=== PATIENT | male | born 1945 | race Caucasian/White ===

== ENCOUNTER 2017-02-03 05:49 | Inpatient (IN) | payer OTHER, SELFPAY ==
[2017-01-27 09:19] LABS: WBC (NOT ORDERED) (RFLEX) 0 (0-5)
[2017-01-27 09:38] LABS: HEMATOCRIT 40.6 % (40.0-51.0); HEMOGLOBIN 13.8 g/dL (13.6-17.8)
[2017-01-27 09:50] LABS: BUN (BLOOD UREA NITROGEN) 21 MG/DL (6-23); CHLORIDE, SERUM 106 MMOL/L (96-112); CO2 (CARBON DIOXIDE) 28 MMOL/L (24-34); CREATININE 1.17 MG/DL (0.70-1.30); GFR AFRICAN AMERICAN 73 ML/MIN (>=60); GFR NON AFRICAN AMERICAN 63 ML/MIN (>=60); GLUCOSE, SERUM 99 MG/DL (60-99); POTASSIUM, SERUM 4.2 MMOL/L (3.5-5.3); SODIUM, SERUM 141 MMOL/L (135-148)
[2017-01-27 09:53] LABS: ASCORBIC ACID (UR NOT ORDER) NEG (NEG); BILIRUBIN, URINE NEGATIVE (NEG); KETONE, URINE NEGATIVE (NEG); LEUKOCYTE ESTERASE(NOT OR NEG (NEG)
--- NOTE | ~2017-02-03 | OP ---
Record Of Operation [facility] [address] [place]. [address] NAME: ORACIO NARANJO : 47 STATUS : ADM IN PAT#: [id number] AGE: 71 ADM/REG DATE : 02/03/17 MR#: [id number] REPORT SERV DATE: 02/03/17 DICTATED BY: CRIS LEBRON DATE: 02/03/17 REPORT STATUS : Draft TRANSCRIBED BY: MODL DATE: 02/03/17 DATE OF PROCEDURE: 02/03/2017 SURGEON: Cris Lebron MD TITLE OF OPERATION: Robot-assisted laparoscopic simple prostatectomy. PREOPERATIVE DIAGNOSIS: Benign prostatic hyperplasia with obstruction. POSTOPERATIVE DIAGNOSIS: Benign prostatic hyperplasia with obstruction. INDICATIONS: Mr. Naranjo is a 71-year-old male, with BPH with obstruction. His prostate volume is greater than 100 g. He has a mechanical heart valve and needs anticoagulation. Weighing the risks and benefits, the various approaches to his prostate, I feel like a robotic simple prostatectomy offers him the best chance to be curative to his voiding symptoms, while getting him back on anticoagulation LOIS. ANESTHESIA: General. COMPLICATIONS: None. IMPLANT: A 24-Citizen [place] 3-way Velasquez catheter, #10 SANID drain. SPECIMEN: Prostatic adenoma. NARRATIVE: The patient was brought to the operating room, identified by his wristband. General anesthesia was induced and Ancef was given for preoperative antibiotics. He was placed in dorsal lithotomy position, prepped and draped in sterile fashion. His abdomen was insufflated to pressure of 15 mmHg using a Veress needle. A 12 mm port was placed in a supraumbilical position. The abdomen was inspected, there were no adhesions or tumors. Two 8 mm ports were placed in the left side of the body and one 8 mm port was placed in the right side of the body. A 12 mm port was placed in the right lower quadrant for pharmacy assistant port and a 5 mm port was placed in the right upper quadrant for pharmacy assistant port. The patient was placed in Trendelenburg and the SI robot was docked. The bladder was then dropped off the anterior abdominal wall using electrocautery exposing the pubic bone and prostate. The fibrofatty tissue overlying the prostate was removed with bipolar cautery and scissors and discarded. A horizontal cystotomy was made just proximal to the adenoma. This was widened and exposing the intravesical portion of the prostate. A 2-0 Monocryl suture was placed through the intravesical adenoma for a retracting suture. It was clipped, the needle was removed. I scored the bladder mucosa above the trigone on the adenoma down to the level of the adenoma. The dissection was carried down our to the junction of the transitional and peripheral zones. Next, the adenoma was dissected circumferentially off the capsule laterally and anteriorly. Eventually, the urethra was encountered and it was sharply divided under direct vision. The adenoma was then removed from the prostatic fossa and placed into an EndoCatch bag. Arterial bleeding was controlled with pinpoint cautery. The bladder mucosa was advanced into the prostatic fossa using a running 3-0 V-Loc suture. The Record Of Operation [address] [address] NAME: ORACIO NARANJO : 46 STATUS : ADM IN PAT#: [id number] AGE: 71 ADM/REG DATE : 02/03/17 MR#: [id number] REPORT SERV DATE: 02/03/17 DICTATED BY: CRIS LEBRON DATE: 02/03/17 REPORT STATUS : Draft TRANSCRIBED BY: HARESH DATE: 02/03/17 dorsal vein perforating vessels were oversewn with a running 3-0 V-Loc suture in a horseshoe fashion over the urethra. There was excellent hemostasis. A 24-Citizen [place] 3-way Velasquez catheter was placed into the bladder with robotic assistance. The cystotomy was closed in two layers, the first layer was a mucosal layer with a 3-0 V-Loc suture in a running fashion, the second layer was a seromuscular layer using a 2-0 V-Loc suture. The balloon was inflated with 40 mL of sterile water. The bladder was irrigated, the connection was water tight. The patient was then woken anesthesia and transferred to recovery room in stable condition. His catheter was on CBI on gentle traction. He will be admitted to the hospital. We will reinstate his anticoagulation while he is admitted. ALONDRA/HARESH Cris Lebron MD / [id number] CC: Cris Lebron MD
--- NOTE | ~2017-02-03 | HP ---
History And Physical [address] [place]. [address] NAME: ORACIO NARANJO : 47 STATUS : DIS IN PAT#: [id number] AGE: 71 ADM/REG DATE : 02/03/17 MR#: [id number] REPORT SERV DATE: 03/28/17 DICTATED BY: CRIS LEBRON DATE: 03/28/17 REPORT STATUS : Draft TRANSCRIBED BY: MODL DATE: 03/28/17 DATE OF ADMISSION: 02/03/2017 CHIEF COMPLAINT: BPH with obstruction due to enlarged prostate. HISTORY OF PRESENT ILLNESS: Mr. Naranjo is a very pleasant, 71-year-old male with a history of BPH with obstruction. His prostate was measured in the clinic and found to be over 100 g. Of note, he has a mechanical heart valve and require systemic anticoagulation. He has been on a Lovenox bridge. He presents today for robotic-assisted laparoscopic simple prostatectomy. PAST MEDICAL HISTORY: Notable for BPH with obstruction, mechanical heart valve, hypertension, hypercholesterolemia, coronary artery disease. PAST SURGICAL HISTORY: Mechanical heart valve, hernia repair. FAMILY HISTORY: Negative for genitourinary cancer. SURGICAL HISTORY: Noncontributory. MEDICATIONS: Reviewed on the chart. ALLERGIES: NO KNOWN DRUG ALLERGIES. REVIEW OF SYSTEMS: A 12-point review of systems was performed. Pertinent positives listed in the HPI. PHYSICAL EXAMINATION: VITAL SIGNS: He is afebrile. His vital signs are stable. GENERAL: He is in no acute distress. He appears stated age. HEAD: Normocephalic and atraumatic. RESPIRATORY: Breathing nonlabored. He is not in respiratory distress. CARDIAC: Pulse is regular in rate and rhythm. ABDOMEN: Soft, nontender, nondistended. NEURO: He is alert and oriented x3. EXTREMITIES: No cyanosis or edema. LABORATORY DATA: No new labs. IMAGING: No new imaging. ASSESSMENT/PLAN: Benign prostatic hypertrophy with obstruction due to a greater than 100 g prostate. We will proceed with a robot-assisted laparoscopic simple prostatectomy as discussed. Risks and benefits discussed in detail. Consent was obtained. He will need anticoagulation after the procedure. History And Physical [address] [address] NAME: ORACIO NARANJO : 47 STATUS : DIS IN PAT#: [id number] AGE: 71 ADM/REG DATE : 02/03/17 MR#: [id number] REPORT SERV DATE: 03/28/17 DICTATED BY: CRIS LEBRON DATE: 03/28/17 REPORT STATUS : Draft TRANSCRIBED BY: HARESH DATE: 03/28/17 ALONDRA/HARESH Cris Lebron MD / [id number] CC: MD Rambo Aguirre Jr., D.O.
--- NOTE | ~2017-02-03 | DS ---
Discharge Summary [facility] [address] [place]. [address] NAME: ORACIO NARANJO : 47 STATUS : DIS IN PAT#: [id number] AGE: 71 ADM/REG DATE : 02/03/17 MR#: [id number] REPORT SERV DATE: 02/15/17 DICTATED BY: CRIS LEBRON DATE: 02/14/17 REPORT STATUS : Draft TRANSCRIBED BY: HARESH DATE: 02/14/17 ADMISSION DATE: 02/03/2017 DISCHARGE DATE: 02/06/2017 DISCHARGE DIAGNOSES: 1. Benign prostatic hypertrophy with obstruction due to enlarged prostate. 2. History of mechanical aortic valve replacement. PROCEDURE: Robot-assisted laparoscopic simple prostatectomy. HOSPITAL COURSE: Mr. Naranjo is a very pleasant gentleman with history of a greater than 100 g prostate and BPH obstruction. He also has a mechanical heart valve and require systemic anticoagulation. He discussed options in the involving transurethral procedures versus simple prostatectomy. Also, he was deemed a simple prostatectomy. We will give him the best cure rate and least amount of long-term bleeding complications. On the date of admission, the patient underwent the above-mentioned operation. He tolerated the procedure well. There were no major complications. For operative details, please see my operative note. Postoperatively, he was transferred to the recovery room and to the floor in stable condition. He initially had CBI running which was weaned clear. The drain placed during surgery and was removed on the second postoperative day. A heparin drip and Coumadin were given on postop day #1. On postop day #3, the patient had clear urine on a therapeutic heparin drip and Coumadin. Therefore, a heparin drip was stopped. He was given a dose of Lovenox, and he was sent home. Prior to being discharge, he was tolerating a regular diet. He was ambulating without difficulty, and he had a bowel movement. DISCHARGE MEDICATIONS: Please see discharge medication work sheet. DISCHARGE INSTRUCTIONS: Please see my preprinted discharge instructions. FOLLOWUP: Please follow up with me next Thursday for Velasquez catheter removal. ALONDRA/HARESH Cris Lebron MD / [id number] CC: MD Rambo Aguirre Jr., D.O.
[~2017-02-03 05:49] MED LIST: ATEN25 PO; COUMADIN4 MG PO; DIOV160 PO; FERROUS SULF325 M1 PO; FISH OIL1200 MG PO; FLOMAX4 PO; LIPITOR40 PO; PROTONIX PO; ULTRAM50 PO; Z100 PO; ZANTAC150 MG PO; [UNRECOGNIZED DRUG - OTHER] PO
[2017-02-03 06:40] LABS: INTERNATIONAL NORMAL RATI 1.2 UNITS (-); PROTIME (NOT ORD) 15.4 SEC (12.0-14.5)
[2017-02-03 10:35] LABS: BASOPHILS 0.3 %; BASOPHILS ABSOLUTE 0.02 10/3/uL (0.0-0.16); EOSINOPHILS 0.5 %; EOSINOPHILS ABSOLUTE 0.04 10/3/uL (0.0-0.53); HEMOGLOBIN 12.4 g/dL (13.6-17.8); IMMATURE GRANULOCYTES 0.1 %; IMMATURE GRANULOCYTES ABSOLUTE 0.01 10/3/uL (0.0-0.11); LYMPHOCYTES 11.6 %; LYMPHOCYTES ABSOLUTE 0.85 10/3/uL (0.67-4.30); MEAN CORPUS HGB CONC 33.5 g/dL (32.0-36.0); MEAN CORPUSCULAR HEMOGLOB 29.1 pg (26.0-34.0); MEAN CORPUSCULAR VOLUME 86.9 fL (80-100); MEAN PLATELET VOLUME 9.4 fL (9.2-13.0); MONOCYTES 3.1 %; MONOCYTES ABSOLUTE 0.23 10/3/uL (0.21-1.20); NEUTROPHILS 84.4 %; NEUTROPHILS ABSOLUTE 6.19 10/3/uL (2.02-8.40); PLATELET COUNT 174 10/3/uL (150-400); RBC DISTRIBUTION WIDTH 13.8 % (12.0-16.0); WHITE BLOOD CELLS 7.3 10/3/uL (4.5-10.5)
[2017-02-03 10:36] LABS: MANUAL DIFF NO %; RED CELL COUNT 4.26 10/6/uL (4.7-6.1)
[2017-02-03 10:45] LABS: BUN (BLOOD UREA NITROGEN) 16 MG/DL (6-23); CALCIUM, SERUM 8.5 MG/DL (8.5-10.4); CHLORIDE, SERUM 106 MMOL/L (96-112); CO2 (CARBON DIOXIDE) 25 MMOL/L (24-34); CREATININE 1.06 MG/DL (0.70-1.30); GFR AFRICAN AMERICAN 82 ML/MIN (>=60); GFR NON AFRICAN AMERICAN 71 ML/MIN (>=60); GLUCOSE, SERUM 116 MG/DL (60-99); POTASSIUM, SERUM 3.9 MMOL/L (3.5-5.3); SODIUM, SERUM 141 MMOL/L (135-148)
[2017-02-04 05:00] LABS: BASOPHILS 0 %; EOSINOPHILS 0 %; HEMATOCRIT 36.3 % (40.0-51.0); HEMOGLOBIN 12.3 g/dL (13.6-17.8); IMMATURE GRANULOCYTES 0.4 %; IMMATURE GRANULOCYTES ABSOLUTE 0.04 10/3/uL (0.0-0.11); LYMPHOCYTES 8.8 %; LYMPHOCYTES ABSOLUTE 0.95 10/3/uL (0.67-4.30); MEAN CORPUS HGB CONC 33.9 g/dL (32.0-36.0); MEAN CORPUSCULAR HEMOGLOB 29.8 pg (26.0-34.0); MEAN CORPUSCULAR VOLUME 87.9 fL (80-100); MEAN PLATELET VOLUME 10.1 fL (9.2-13.0); MONOCYTES 9.8 %; MONOCYTES ABSOLUTE 1.06 10/3/uL (0.21-1.20); NEUTROPHILS ABSOLUTE 8.79 10/3/uL (2.02-8.40); PLATELET COUNT 204 10/3/uL (150-400); RBC DISTRIBUTION WIDTH 13.9 % (12.0-16.0); RED CELL COUNT 4.13 10/6/uL (4.7-6.1)
[2017-02-04 05:03] LABS: MANUAL DIFF NO %; WHITE BLOOD CELLS 10.8 10/3/uL (4.5-10.5)
[2017-02-04 05:10] LABS: CALCIUM, SERUM 8.7 MG/DL (8.5-10.4); CHLORIDE, SERUM 109 MMOL/L (96-112); CO2 (CARBON DIOXIDE) 25 MMOL/L (24-34); CREATININE 1.03 MG/DL (0.70-1.30); GFR AFRICAN AMERICAN 85 ML/MIN (>=60); GFR NON AFRICAN AMERICAN 73 ML/MIN (>=60); SODIUM, SERUM 140 MMOL/L (135-148)
[2017-02-04 05:11] LABS: BUN (BLOOD UREA NITROGEN) 12 MG/DL (6-23); GLUCOSE, SERUM 157 MG/DL (60-99); POTASSIUM, SERUM 4.7 MMOL/L (3.5-5.3)
[2017-02-04 15:31] LABS: INTERNATIONAL NORMAL RATI 1.2 UNITS (-); PARTIAL THROMBO TIME 28.3 SEC (22.5-37.2); PROTIME (NOT ORD) 14.6 SEC (12.0-14.5)
[2017-02-05 04:16] LABS: BASOPHILS 0.3 %; BASOPHILS ABSOLUTE 0.03 10/3/uL (0.0-0.16); EOSINOPHILS 1.7 %; EOSINOPHILS ABSOLUTE 0.19 10/3/uL (0.0-0.53); HEMATOCRIT 36.7 % (40.0-51.0); HEMOGLOBIN 12.2 g/dL (13.6-17.8); IMMATURE GRANULOCYTES 0.2 %; IMMATURE GRANULOCYTES ABSOLUTE 0.02 10/3/uL (0.0-0.11); LYMPHOCYTES 15.6 %; LYMPHOCYTES ABSOLUTE 1.71 10/3/uL (0.67-4.30); MEAN CORPUS HGB CONC 33.2 g/dL (32.0-36.0); MEAN CORPUSCULAR HEMOGLOB 29.5 pg (26.0-34.0); MEAN CORPUSCULAR VOLUME 88.9 fL (80-100); MEAN PLATELET VOLUME 10.6 fL (9.2-13.0); MONOCYTES 8.6 %; MONOCYTES ABSOLUTE 0.94 10/3/uL (0.21-1.20); NEUTROPHILS 73.6 %; NEUTROPHILS ABSOLUTE 8.09 10/3/uL (2.02-8.40); PLATELET COUNT 196 10/3/uL (150-400); RBC DISTRIBUTION WIDTH 14.1 % (12.0-16.0); RED CELL COUNT 4.13 10/6/uL (4.7-6.1)
[2017-02-05 04:17] LABS: MANUAL DIFF NO %
[2017-02-05 04:30] LABS: BUN (BLOOD UREA NITROGEN) 12 MG/DL (6-23); CALCIUM, SERUM 8.7 MG/DL (8.5-10.4); CHLORIDE, SERUM 104 MMOL/L (96-112); CO2 (CARBON DIOXIDE) 28 MMOL/L (24-34); CREATININE 1.15 MG/DL (0.70-1.30); GFR AFRICAN AMERICAN 74 ML/MIN (>=60); GFR NON AFRICAN AMERICAN 64 ML/MIN (>=60); GLUCOSE, SERUM 133 MG/DL (60-99); POTASSIUM, SERUM 4.1 MMOL/L (3.5-5.3); SODIUM, SERUM 140 MMOL/L (135-148)
[2017-02-05 20:15] LABS: BASOPHILS 0.2 %; BASOPHILS ABSOLUTE 0.03 10/3/uL (0.0-0.16); EOSINOPHILS 1.1 %; EOSINOPHILS ABSOLUTE 0.14 10/3/uL (0.0-0.53); HEMATOCRIT 37.1 % (40.0-51.0); HEMOGLOBIN 12.8 g/dL (13.6-17.8); IMMATURE GRANULOCYTES 0.2 %; IMMATURE GRANULOCYTES ABSOLUTE 0.02 10/3/uL (0.0-0.11); LYMPHOCYTES 9.4 %; LYMPHOCYTES ABSOLUTE 1.22 10/3/uL (0.67-4.30); MEAN CORPUS HGB CONC 34.5 g/dL (32.0-36.0); MEAN CORPUSCULAR HEMOGLOB 30.5 pg (26.0-34.0); MEAN CORPUSCULAR VOLUME 88.5 fL (80-100); MEAN PLATELET VOLUME 10.6 fL (9.2-13.0); MONOCYTES 10.2 %; MONOCYTES ABSOLUTE 1.32 10/3/uL (0.21-1.20); NEUTROPHILS 78.9 %; NEUTROPHILS ABSOLUTE 10.27 10/3/uL (2.02-8.40); PLATELET COUNT 195 10/3/uL (150-400); RBC DISTRIBUTION WIDTH 13.7 % (12.0-16.0); RED CELL COUNT 4.19 10/6/uL (4.7-6.1)
[2017-02-05 20:17] LABS: MANUAL DIFF NO %
[2017-02-06 07:44] LABS: INTERNATIONAL NORMAL RATI 1.2 UNITS (-); PROTIME (NOT ORD) 14.9 SEC (12.0-14.5)
[2017-02-06 07:45] LABS: PARTIAL THROMBO TIME 72.6 SEC (22.5-37.2)
[2017-02-06 07:49] LABS: BUN (BLOOD UREA NITROGEN) 11 MG/DL (6-23); CALCIUM, SERUM 8.4 MG/DL (8.5-10.4); CHLORIDE, SERUM 103 MMOL/L (96-112); CO2 (CARBON DIOXIDE) 28 MMOL/L (24-34); CREATININE 1.08 MG/DL (0.70-1.30); GFR AFRICAN AMERICAN 80 ML/MIN (>=60); GFR NON AFRICAN AMERICAN 69 ML/MIN (>=60); GLUCOSE, SERUM 106 MG/DL (60-99); POTASSIUM, SERUM 3.9 MMOL/L (3.5-5.3); SODIUM, SERUM 140 MMOL/L (135-148)
[2017-02-06 09:10] LABS: BASOPHILS 0.4 %; BASOPHILS ABSOLUTE 0.05 10/3/uL (0.0-0.16); EOSINOPHILS ABSOLUTE 0.23 10/3/uL (0.0-0.53); HEMATOCRIT 34.8 % (40.0-51.0); IMMATURE GRANULOCYTES 0.3 %; IMMATURE GRANULOCYTES ABSOLUTE 0.03 10/3/uL (0.0-0.11); LYMPHOCYTES 13.9 %; LYMPHOCYTES ABSOLUTE 1.62 10/3/uL (0.67-4.30); MANUAL DIFF NO %; MEAN CORPUS HGB CONC 34.5 g/dL (32.0-36.0); MEAN CORPUSCULAR HEMOGLOB 30.1 pg (26.0-34.0); MEAN CORPUSCULAR VOLUME 87.2 fL (80-100); MEAN PLATELET VOLUME 10.4 fL (9.2-13.0); MONOCYTES 7.2 %; MONOCYTES ABSOLUTE 0.84 10/3/uL (0.21-1.20); NEUTROPHILS 76.2 %; NEUTROPHILS ABSOLUTE 8.89 10/3/uL (2.02-8.40); PLATELET COUNT 196 10/3/uL (150-400); RED CELL COUNT 3.99 10/6/uL (4.7-6.1); WHITE BLOOD CELLS 11.7 10/3/uL (4.5-10.5)
[2017-02-06] MEDS ORDERED: LOVENOX1C SC (15:10)
[2017-02-06] MEDS ORDERED: DSS PO (15:10)
[2017-02-06] MEDS ORDERED: PCET PO (15:11)
[2017-02-06] MEDS ORDERED: MACROBID PO (15:12)
== END 2017-02-06 16:12 | disposition home or self-care (01) | DRG 713 ==
LOC: SDC/OF 05:49 → PACU 10:14 → 4SO 12:30
PROVIDERS: Urology
PROC: 0VB08ZZ Excision of Prostate, Via Natural or Artificial Opening Endoscopic (ICD-10-PCS; principal; 2017-02-03 07:00)
PROC: 8E0W4CZ Robotic Assisted Procedure of Trunk Region, Percutaneous Endoscopic Approach (ICD-10-PCS; principal; 2017-02-03 07:00)
DX: N40.1 Benign prostatic hyperplasia with lower urinary tract symptoms (principal); N13.8 Other obstructive and reflux uropathy; I10 Essential (primary) hypertension; Z95.2 Presence of prosthetic heart valve; Z79.01 Long term (current) use of anticoagulants
CPT/HCPCS: 36415; 80048; 81001; 85014; 85018; 85025; 85610; 85730; 86850; 86900; 86901; 88307; A9270-GY; J0690; J1170; J2250; J2405; J2710; J2795; J3010

== ENCOUNTER 2017-02-08 06:56 | Inpatient (IN) | payer OTHER ==
--- NOTE | ~2017-02-08 | CN ---
Consultation Report [facility] [address] [place]. [address] NAME: ORACIO NARANJO : 47 STATUS : ADM Criss PAT#: [id number] AGE: 71 ADM/REG DATE : 02/08/17 MR#: [id number] REPORT SERV DATE: 02/11/17 DICTATED BY: DENNIS CORONA DATE: 02/11/17 REPORT STATUS : Draft TRANSCRIBED BY: MODL DATE: 02/11/17 CONSULTATION DATE OF CONSULTATION: 02/11/2017 REASON FOR CONSULTATION: Hypotension, nonspecified. PRIMARY FISHERIES BIOLOGIST: Link Mueller M.D.. HISTORY OF PRESENT ILLNESS: Mr. Naranjo is a pleasant 71-year-old gentleman with a history of aortic dissection and aortic stenosis, status post [employer] M mechanical aortic valve replacement as well as aortic root repair(2004) on Coumadin, hypertension, and hyperlipidemia, who presented last week for elective robotic prostatectomy, which was uneventful. He came in one to two days following discharge on 02/08/2017 with hematuria. During his preoperative, operative, and postoperative course, he has been carefully bridged with Lovenox/heparin drip. He did miss bridging on 02/09/2017 per review of med reconciliation forms. Otherwise, he has been fully bridged during the perioperative time period. He has no specific cardiac complaints at this point in time. He, however, has had a low blood pressures for the past one to two days with a systolic blood pressures in the 80s to 90s and diastolic blood pressures in the 50s. He has been largely asymptomatic, however, only feeling trivial odd sensations in his head/lightheadedness. He is not particularly bothered by this. Of note, he has received atenolol as well as valsartan while here. He has had a slow heart rate over the past couple of days as well in the 50s. PAST MEDICAL HISTORY: As above. SOCIAL HISTORY: The patient lives with his . FAMILY HISTORY: Noncontributory for premature cardiovascular disease with exception of his son, who had surgery for his aortic valve (bicuspid) at the age of 8. REVIEW OF SYSTEMS: As above, all other systems otherwise negative. PHYSICAL EXAMINATION: VITAL SIGNS: Blood pressure 105/59, pulse 68, and temperature 97.8. GENERAL: Well developed, well nourished, no acute distress. NEURO: Awake, alert and oriented x3; no focal deficits, appropriate mood. HEENT: Moist mucous membranes, anicteric sclerae, no nasal discharge. NECK: No JVD, no carotid bruit. LUNGS: Clear to auscultation bilaterally, no wheezes, rales or rhonchi. CARDIAC: Regular rate and rhythm, crisp, prosthetic click, normal S1, S2, and 2/6 systolic murmur at the right sternal border. ABD: Soft, non-tender, non-distended, no rebound or guarding. Consultation Report [facility] [address] [place]. [address] NAME: ORACIO NARANJO : 47 STATUS : ADM Criss PAT#: [id number] AGE: 71 ADM/REG DATE : 02/08/17 MR#: [id number] REPORT SERV DATE: 02/11/17 DICTATED BY: DENNIS CORONA DATE: 02/11/17 REPORT STATUS : Draft TRANSCRIBED BY: HARESH DATE: 02/11/17 EXT: No pitting edema, normal distal pulses. SKIN: Warm, dry and intact; no rash. PERTINENT TEST FINDINGS: Potassium 4.3, creatinine 1.03. White blood cell count 10, hemoglobin 9.3. INR 1.2. Echocardiogram from December shows normal biventricular function with a stable mechanical prosthesis with increased gradients that are stable. EKG is not done at the time of this dictation. IMPRESSION AND PLAN: Mr. Naranjo is a pleasant 71-year-old gentleman with a history of aortic root dissection and aortic stenosis, status post [employer] M mechanical prosthesis and aortic repair (2004), who is now status post about robotic elective prostatectomy with nonspecified hypotension, prompting consultation today. I do not find any acute cardiac issue at this point in time that is suggested by his clinical exam or his clinical data that I have reviewed. On his exam, he has a crisp click indicative of a well-functioning prosthesis; however, I will be helpful to check an echocardiogram to definitively document this. I anticipate that he will have elevated gradients across his prosthesis as he has had in the past and that these will be stable and unchanged. Nevertheless, it will be helpful to rehydrate him with IV fluids as you are doing. In addition, I would recommend checking an EKG in light of bradycardia. I would also hold his atenolol and valsartan in light of low blood pressures; however, they have generally been improving on review of these trend over the past two to three days. In addition, he will need to be continued on full anticoagulation for bridging of Coumadin as you are doing. Otherwise, further recommendations will follow findings on his echocardiogram. CORNELIO/HARESH Dennis Corona MD / [id number] CC: MD Rambo Aguirre Jr., Sandra.OErick
--- NOTE | ~2017-02-08 | DS ---
Discharge Summary [facility] [address] [facility] [place]. [address] NAME: ORACIO DE LA FUENTE : 47 STATUS : DIS IN PAT#: [id number] AGE: 71 ADM/REG DATE : 02/08/17 MR#: [id number] REPORT SERV DATE: 02/25/17 DICTATED BY: CRIS LEBRON DATE: 02/24/17 REPORT STATUS : Draft TRANSCRIBED BY: MODL DATE: 02/24/17 Data Collection from hospitalization DISCHARGE DIAGNOSES: 1. Hematuria with retention. 2. Hypertension. 3. Hypercholesterolemia. 4. Gout. 5. Arthritis. 6. Gastric ulcers. 7. Dysphagia. 8. History of bladder cancer. 9. Benign prostatic hypertrophy. 10.Anemia. 11.Former smoker. CONSULTATIONS: Dr. Dennis Tomlinson. PROCEDURES PERFORMED: Ultrasound of the urinary bladder, 02/14/2017. DISCHARGE MEDICATIONS: Tenormin 25 mg every day at bedtime, Lipitor 40 mg every day at bedtime, Colace 100 mg twice a day, Lovenox 100 mg subcutaneously twice a day, Macrobid 100 mg twice a day, fish oil 1200 mg at bedtime, Percocet 5/325 one to two tablets every four hours as needed, Zantac 150 mg at bedtime, Diovan 160 mg every day at bedtime, Coumadin 4 mg daily. CONDITION AT DISCHARGE: Stable. DISPOSITION: The patient was discharged home on a regular diet with activities as instructed. He would follow up with Dr. Rambo Mckeon one week following discharge. He would follow up with Dr. Link Mueller one month following discharge. He is to followup with Dr. Rambo Mckeon three to four days following discharge for INR level check and would follow up with Dr. Cris Lebron two weeks following discharge. HOSPITAL COURSE: This is a 71-year-old man, who is status post robotic simple prostatectomy. Postoperatively, he did reasonably well. He went home, but began to have gross hematuria. He does have an aortic valve replacement with artificial bowel and requires Coumadin therapy chronically. He was on Lovenox bridge therapy along with starting his Coumadin and he presented back at this time with clot retention in the emergency room. His bladder was irrigated and he was brought to the floor on continuous bladder irrigation. He was admitted to the hospital for further evaluation and treatment. Upon admission, creatinine level was 1.0. Bladder irrigation was continued as well as Lovenox for now. Coumadin was held. Electrolytes were replaced. The following day, his urine was clear. Continues bladder irrigation continued. His Lovenox had been stopped. He was continued on Coumadin. On the , bladder scan was performed. His urine was pink. He was in no acute distress. On 02/11/2017, his abdomen was soft. His urine was clear. Heparin drip was restarted. He was seen by Dr. Dennis Tomlinson regarding nonspecified Discharge Summary [address] [place]. [address] NAME: ORACIO DE LA FUENTE : 47 STATUS : DIS IN PAT#: [id number] AGE: 71 ADM/REG DATE : 02/08/17 MR#: [id number] REPORT SERV DATE: 02/25/17 DICTATED BY: CRIS LEBRON DATE: 02/24/17 REPORT STATUS : Draft TRANSCRIBED BY: HARESH DATE: 02/24/17 hypotension. He had had low blood pressures over the past one to two days with systolic blood pressures in the 80s to 90s and diastolic blood pressures in the 50s. He had been largely asymptomatic, however, only feeling trivial odd sensations in his head and lightheadedness. He was not particularly bothered by this. He had received a Kenalog as well as valsartan while here. He had had a slow heart rate over the past couple of days as well in the 50s. He has a history of aortic root dissection and aortic stenosis status post [employer] Jose M mechanical prosthesis and aortic repair prompting consultation. He did not find any acute cardiac issues at this point in time, suggested by his clinical exam or his clinical data. On his exam, he had a crisp click indicative of a well-functioning prosthesis; however, it was felt helpful to have an echocardiogram checked to definitively document this. It was anticipated that he would have elevated gradient across the prosthesis as he had had in the past and these would be stable and unchanged. Nevertheless, he felt it would be helpful to rehydrate him with IV fluids. In addition, he also recommended checking an EKG in light of the bradycardia. Atenolol and valsartan would be held in light of low blood pressures; however, they had generally been improving on review of the trends over the past two to three days. In addition, he would need to be continued on full anticoagulation for bridging of Coumadin as was being performed. Echocardiogram was obtained. The next day, he was doing well. His urine was clear on minimal continuous bladder irrigation. Blood pressure had improved. It was felt that he would need systemic anticoagulation for mechanical heart valve, but it was felt that Lovenox was too risky from a bleeding standpoint. He was going to be kept on Coumadin and heparin drip for now. We were going to try and discontinue the Velasquez catheter as soon as possible. He was found to have a stable aortic valve with normal left ventricular function at 60%. He was in a sinus rhythm. The valve was functioning well. On 02/13/2017, his urine was pink. INR level was 1.5. He continued to do well. The Velasquez was removed. Heparin drip/Coumadin were continued. The next day, he continued to do well. Heparin drip was stopped. Coumadin was continued. We encouraged him to ambulate. He was tolerating a regular diet. Discharge planning was performed. On 02/15/2017, he was in no acute distress. INR level was 1.7. Discharge instructions were given. Due to his improved and stable condition, he was discharged home with the above-stated instructions. Information collected by: Tresa Kaufman I submit the above information as my discharge summary. TG/MODL Cris Lebron MD / [id number] CC: MD Rambo Aguirre Jr., D.OErick Tomlinson MD
--- NOTE | ~2017-02-08 | HP ---
History And Physical [address] [place]. [address] NAME: ORACIO NARANJO : 47 STATUS : ADM Criss PAT#: [id number] AGE: 71 ADM/REG DATE : 02/08/17 MR#: [id number] REPORT SERV DATE: 02/08/17 DICTATED BY: JUAN A KHOURY JR. DATE: 02/08/17 REPORT STATUS : Draft TRANSCRIBED BY: MODL DATE: 02/08/17 DATE OF ADMISSION: 02/08/2017 CHIEF COMPLAINT: Gross hematuria. HISTORY OF PRESENT ILLNESS: Mr. Naranjo is a 71-year-old gentleman, who is status post robotic simple prostatectomy by Dr. Ramiro Lebron. Postoperatively, he did reasonably well, went home, but began having gross hematuria. He does have an aortic valve replacement with an artificial valve and requires Coumadin therapy chronically. He was on Lovenox bridge therapy along with starting his Coumadin, and presented back with clot retention in the emergency room. His bladder was irrigated in the emergency room, and he was brought to the floor on continuous bladder irrigation. PAST MEDICAL HISTORY: Significant for the above mentioned cardiovascular aortic mechanical valve, hypertension, hypercholesterolemia, aortic aneurysm in 2004 which was repaired, gout, arthritis, gastric ulcers, dysphagia, bladder cancer in 2006, BPH and anemia. SOCIAL HISTORY: He quit smoking in 1986. He does not drink alcohol to abusive levels. FAMILY HISTORY: Essentially negative. HOME MEDICATIONS: Include: Atenolol, atorvastatin, docusate sodium, enoxaparin, nitrofurantoin, omega-3 fatty acid, oxycodone, ranitidine, valsartan, and Coumadin. ALLERGIES: NONE KNOWN. REVIEW OF SYSTEMS: 10-system review was performed, was essentially negative other than that stated above. PHYSICAL EXAMINATION: GENERAL: He is a well-nourished, well-developed male, in no acute distress. VITAL SIGNS: Afebrile. Vital signs stable. CHEST: Clear to auscultation. HEART: Regular rate and rhythm. ABDOMEN: Soft, nontender, nondistended without palpable hernias. GENITOURINARY: Exam reveals a normal male phallus with a Velasquez catheter in place draining light-red urine on continuous bladder irrigation. EXTREMITIES: Warm without cyanosis, clubbing, or edema. LABORATORY VALUES: Hemoglobin 11, hematocrit 32, white count 10.4. Electrolytes: Sodium 129, potassium 3.4, creatinine 1.0 with a BUN of 14. ASSESSMENT: Clot retention after robotic simple prostatectomy. RECOMMENDATIONS: We will continue bladder irrigation, and we will continue the Lovenox for now. We will hold the Coumadin. We will discuss further therapy with Dr. Lebron when he History And Physical [address] [address] NAME: ORACIO NARANJO : 47 STATUS : ADM Criss PAT#: [id number] AGE: 71 ADM/REG DATE : 02/08/17 MR#: [id number] REPORT SERV DATE: 02/08/17 DICTATED BY: JUAN A KHOURY JR. DATE: 02/08/17 REPORT STATUS : Draft TRANSCRIBED BY: HARESH DATE: 02/08/17 returns tomorrow, and also replace his electrolytes and recheck his labs in the morning. ANGELIKA/HARESH Juan A Khoury Jr., M.D. / [id number] CC: MD Rambo Aguirre Jr., D.O.
[2017-02-08 06:19] LABS: BASOPHILS 0.1 %; BASOPHILS ABSOLUTE 0.01 10/3/uL (0.0-0.16); EOSINOPHILS 1.2 %; EOSINOPHILS ABSOLUTE 0.13 10/3/uL (0.0-0.53); ER CBC TAT 0 Hrs 05 Mins; HEMOGLOBIN 11.3 g/dL (13.6-17.8); IMMATURE GRANULOCYTES 0.3 %; IMMATURE GRANULOCYTES ABSOLUTE 0.03 10/3/uL (0.0-0.11); LYMPHOCYTES 8.1 %; LYMPHOCYTES ABSOLUTE 0.85 10/3/uL (0.67-4.30); MANUAL DIFF NO %; MEAN CORPUS HGB CONC 35.3 g/dL (32.0-36.0); MEAN CORPUSCULAR HEMOGLOB 29.9 pg (26.0-34.0); MEAN CORPUSCULAR VOLUME 84.7 fL (80-100); MEAN PLATELET VOLUME 9.2 fL (9.2-13.0); MONOCYTES 13.8 %; MONOCYTES ABSOLUTE 1.44 10/3/uL (0.21-1.20); NEUTROPHILS 76.5 %; NEUTROPHILS ABSOLUTE 7.97 10/3/uL (2.02-8.40); PLATELET COUNT 192 10/3/uL (150-400); RBC DISTRIBUTION WIDTH 12.9 % (12.0-16.0); RED CELL COUNT 3.78 10/6/uL (4.7-6.1); WHITE BLOOD CELLS 10.4 10/3/uL (4.5-10.5)
[2017-02-08 06:26] LABS: INTERNATIONAL NORMAL RATI 1.2 UNITS (-); PARTIAL THROMBO TIME 44.2 SEC (22.5-37.2); PROTIME (NOT ORD) 15.1 SEC (12.0-14.5)
[2017-02-08 06:33] LABS: BUN (BLOOD UREA NITROGEN) 14 MG/DL (6-23); CALCIUM, SERUM 8.9 MG/DL (8.5-10.4); CO2 (CARBON DIOXIDE) 30 MMOL/L (24-34); CREATININE 1.08 MG/DL (0.70-1.30); GFR AFRICAN AMERICAN 80 ML/MIN (>=60); GFR NON AFRICAN AMERICAN 69 ML/MIN (>=60); POTASSIUM, SERUM 3.4 MMOL/L (3.5-5.3)
[2017-02-08 06:36] LABS: CHLORIDE, SERUM 89 MMOL/L (96-112); GLUCOSE, SERUM 134 MG/DL (60-99); SODIUM, SERUM 129 MMOL/L (135-148)
[2017-02-08 06:49] LABS: ASCORBIC ACID (UR NOT ORDER) NEG (NEG); BILIRUBIN, URINE NEGATIVE (NEG); ER URINALYSIS TAT 0 Hrs 00 Mins; KETONE, URINE NEGATIVE (NEG); LEUKOCYTE ESTERASE(NOT OR NEG (NEG); NITRITE (URINE) NEG (NEG); WBC (NOT ORDERED) (RFLEX) 22 (0-5)
[~2017-02-08 06:56] MED LIST changes: +DSS PO; +LOVENOX1C SC; +MACROBID PO; +PCET PO
[2017-02-09 05:24] LABS: BASOPHILS 0.5 %; BASOPHILS ABSOLUTE 0.04 10/3/uL (0.0-0.16); EOSINOPHILS 3.4 %; HEMATOCRIT 29.6 % (40.0-51.0); HEMOGLOBIN 10.2 g/dL (13.6-17.8); IMMATURE GRANULOCYTES 0.5 %; IMMATURE GRANULOCYTES ABSOLUTE 0.04 10/3/uL (0.0-0.11); LYMPHOCYTES 18.3 %; MEAN CORPUS HGB CONC 34.5 g/dL (32.0-36.0); MEAN CORPUSCULAR HEMOGLOB 29.5 pg (26.0-34.0); MEAN CORPUSCULAR VOLUME 85.5 fL (80-100); MEAN PLATELET VOLUME 9.9 fL (9.2-13.0); MONOCYTES ABSOLUTE 1.05 10/3/uL (0.21-1.20); NEUTROPHILS 65.3 %; NEUTROPHILS ABSOLUTE 5.72 10/3/uL (2.02-8.40); PLATELET COUNT 226 10/3/uL (150-400); RBC DISTRIBUTION WIDTH 13.4 % (12.0-16.0); RED CELL COUNT 3.46 10/6/uL (4.7-6.1); WHITE BLOOD CELLS 8.8 10/3/uL (4.5-10.5)
[2017-02-09 05:32] LABS: BUN (BLOOD UREA NITROGEN) 13 MG/DL (6-23); CALCIUM, SERUM 9.3 MG/DL (8.5-10.4); CO2 (CARBON DIOXIDE) 26 MMOL/L (24-34); CREATININE 0.97 MG/DL (0.70-1.30); GFR AFRICAN AMERICAN 91 ML/MIN (>=60); GFR NON AFRICAN AMERICAN 79 ML/MIN (>=60)
[2017-02-09 05:34] LABS: CHLORIDE, SERUM 102 MMOL/L (96-112); POTASSIUM, SERUM 4.5 MMOL/L (3.5-5.3); SODIUM, SERUM 136 MMOL/L (135-148)
[2017-02-09 05:35] LABS: GLUCOSE, SERUM 99 MG/DL (60-99)
[2017-02-09 05:49] LABS: MANUAL DIFF NO %
[2017-02-10 06:36] LABS: INTERNATIONAL NORMAL RATI 1.1 UNITS (-); PROTIME (NOT ORD) 13.9 SEC (12.0-14.5)
[2017-02-10 06:44] LABS: BUN (BLOOD UREA NITROGEN) 16 MG/DL (6-23); CALCIUM, SERUM 9.1 MG/DL (8.5-10.4); CHLORIDE, SERUM 101 MMOL/L (96-112); CO2 (CARBON DIOXIDE) 26 MMOL/L (24-34); CREATININE 1.03 MG/DL (0.70-1.30); GFR AFRICAN AMERICAN 85 ML/MIN (>=60); GFR NON AFRICAN AMERICAN 73 ML/MIN (>=60); GLUCOSE, SERUM 95 MG/DL (60-99); POTASSIUM, SERUM 4.3 MMOL/L (3.5-5.3); SODIUM, SERUM 137 MMOL/L (135-148)
[2017-02-10 06:45] LABS: BASOPHILS 0.7 %; BASOPHILS ABSOLUTE 0.05 10/3/uL (0.0-0.16); EOSINOPHILS 4.4 %; EOSINOPHILS ABSOLUTE 0.34 10/3/uL (0.0-0.53); HEMATOCRIT 28.6 % (40.0-51.0); HEMOGLOBIN 9.9 g/dL (13.6-17.8); IMMATURE GRANULOCYTES ABSOLUTE 0.08 10/3/uL (0.0-0.11); LYMPHOCYTES 20.8 %; MEAN CORPUS HGB CONC 34.6 g/dL (32.0-36.0); MEAN CORPUSCULAR HEMOGLOB 29.7 pg (26.0-34.0); MEAN CORPUSCULAR VOLUME 85.9 fL (80-100); MEAN PLATELET VOLUME 9.7 fL (9.2-13.0); MONOCYTES 13.1 %; MONOCYTES ABSOLUTE 1.01 10/3/uL (0.21-1.20); NEUTROPHILS ABSOLUTE 4.61 10/3/uL (2.02-8.40); PLATELET COUNT 259 10/3/uL (150-400); RBC DISTRIBUTION WIDTH 13.3 % (12.0-16.0); RED CELL COUNT 3.33 10/6/uL (4.7-6.1); WHITE BLOOD CELLS 7.7 10/3/uL (4.5-10.5)
[2017-02-10 06:51] LABS: MANUAL DIFF NO %
[2017-02-11 06:41] LABS: INTERNATIONAL NORMAL RATI 1.2 UNITS (-); PROTIME (NOT ORD) 14.8 SEC (12.0-14.5)
[2017-02-11 08:36] LABS: BASOPHILS 0.5 %; BASOPHILS ABSOLUTE 0.05 10/3/uL (0.0-0.16); EOSINOPHILS 2.5 %; EOSINOPHILS ABSOLUTE 0.25 10/3/uL (0.0-0.53); HEMATOCRIT 26.8 % (40.0-51.0); HEMOGLOBIN 9.3 g/dL (13.6-17.8); LYMPHOCYTES 15.5 %; LYMPHOCYTES ABSOLUTE 1.55 10/3/uL (0.67-4.30); MEAN CORPUS HGB CONC 34.7 g/dL (32.0-36.0); MEAN CORPUSCULAR HEMOGLOB 29.9 pg (26.0-34.0); MEAN CORPUSCULAR VOLUME 86.2 fL (80-100); MEAN PLATELET VOLUME 8.9 fL (9.2-13.0); MONOCYTES 8.8 %; MONOCYTES ABSOLUTE 0.88 10/3/uL (0.21-1.20); NEUTROPHILS 71.7 %; PLATELET COUNT 292 10/3/uL (150-400); RBC DISTRIBUTION WIDTH 13.4 % (12.0-16.0); RED CELL COUNT 3.11 10/6/uL (4.7-6.1)
[2017-02-11 09:12] LABS: MANUAL DIFF NO %
[2017-02-11 13:06] LABS: ASCORBIC ACID (UR NOT ORDER) NEG (NEG); BILIRUBIN, URINE NEGATIVE (NEG); KETONE, URINE NEGATIVE (NEG); LEUKOCYTE ESTERASE(NOT OR SMALL (NEG); WBC (NOT ORDERED) (RFLEX) 4 (0-5)
[2017-02-12 05:13] LABS: INTERNATIONAL NORMAL RATI 1.4 UNITS (-)
[2017-02-12 05:15] LABS: PROTIME (NOT ORD) 17.3 SEC (12.0-14.5)
[2017-02-13 05:04] LABS: INTERNATIONAL NORMAL RATI 1.5 UNITS (-); PROTIME (NOT ORD) 17.6 SEC (12.0-14.5)
[2017-02-14 07:08] LABS: INTERNATIONAL NORMAL RATI 1.6 UNITS (-); PARTIAL THROMBO TIME 39.4 SEC (22.5-37.2); PROTIME (NOT ORD) 18.7 SEC (12.0-14.5)
[2017-02-15 05:26] LABS: INTERNATIONAL NORMAL RATI 1.7 UNITS (-); PROTIME (NOT ORD) 19.9 SEC (12.0-14.5)
== END 2017-02-15 12:46 | disposition home or self-care (01) | DRG 921 ==
LOC: ER 06:56 → 4SO 07:16
PROVIDERS: Nurse Practitioner Acute Care; Urology
DX: N99.840 Postprocedural hematoma of a genitourinary system organ or structure following a genitourinary system procedure (principal); I95.89 Other hypotension; D50.0 Iron deficiency anemia secondary to blood loss (chronic); R00.1 Bradycardia, unspecified; Y83.6 Removal of other organ (partial) (total) as the cause of abnormal reaction of the patient, or of later complication, without mention of misadventure at the time of the procedure; R31.0 Gross hematuria; Z95.2 Presence of prosthetic heart valve; Z79.01 Long term (current) use of anticoagulants; Z90.79 Acquired absence of other genital organ(s); I10 Essential (primary) hypertension; E78.00 Pure hypercholesterolemia, unspecified; Z85.51 Personal history of malignant neoplasm of bladder; Z87.891 Personal history of nicotine dependence; M10.9 Gout, unspecified; M19.90 Unspecified osteoarthritis, unspecified site; Z87.11 Personal history of peptic ulcer disease
CPT/HCPCS: 76705; 80048; 81001; 85025; 85610; 85730; 87086; 93005; 93307; 93321; 96372; 96374; 96376; 99284; A9270-GY; G0378